=== PATIENT | female | born 1940 | race Caucasian/White ===

== ENCOUNTER → 2018-03-28 | Outpatient (CLI) | payer MEDICARE, BC ==
[~2018-03-28] MED LIST: AMBIEN10 MG PO; AMIODARONE HCL200 MG PO; ASPIR 8181 MG PO; BENTYL10 MG PO; CARVEDILOL3.125 MG PO; CENTRUM SILVER1 EAC3 PO; CEPHALEXIN500 MG PO; COUMADIN3 MG PO; FISH OIL 1,0001 EAC1 PO; FLOMAX0.4 MG PO; K DUR10 MEQ PO; LIVALO4 MG PO; MAGNESIUM250 MG PO; MUCINEX DM ER1 EAC1; NEXIUM40 MG PO; PAXIL20 MG PO; TORSEMIDE10 MG PO; TRAMADOL-ACETAMI1 EA PO; VESICARE10 MG PO; VITAMIN D1000 UNI1 PO; WARFARIN SODIUM4 MG PO; ZANAFLEX4 MG PO
--- NOTE | 2018-03-28 14:17 | Diagnostic Imaging Report ---
Exam: Right shoulder 2 views History: Shoulder pain Comparison: None. Findings: No fracture or malalignment. Downsloping acromion with spurring. Glenohumeral joint intact. Impression: Radiographic finding of rotator cuff tendinopathy. No acute osseous abnormality. Signed by: Dr. Patricio Kim M.D. on 03/28/2018 2:13 PM
--- NOTE | 2018-03-28 14:20 | Diagnostic Imaging Report ---
Exam: Cervical spine AP lateral oblique History: Neck pain Comparison: None. Findings: No acute fracture. Multilevel degenerative disc disease with posterior disc osteophyte complex. Retrolisthesis C3 on C4 and C4 on C5. Multilevel facet and uncovertebral hypertrophy. Multilevel bilateral foraminal stenosis. Impression: No acute osseous abnormality Severe multilevel cervical spondylosis with foraminal stenosis. Signed by: Dr. Patricio Kim M.D. on 03/28/2018 2:16 PM
== END ==
LOC: RAD 13:15
PROVIDERS: ATTEND Family Medicine
DX: M25.511 Pain in right shoulder (principal); M54.12 Radiculopathy, cervical region
CPT/HCPCS: 72050

== ENCOUNTER → 2018-04-06 | Outpatient (CLI) | payer MEDICARE, BC ==
--- NOTE | 2018-04-07 12:14 | Diagnostic Imaging Report ---
EXAMINATION: MRI of the cervical spine without contrast HISTORY: Neck pain radiating to the right shoulder/upper extremity, radiculopathy. COMPARISON: none. TECHNIQUE: Sagittal T1, T2, STIR; axial T2, gradient echo. FINDINGS: Curvature: Mild increase cervical lordosis. Mild S-shaped scoliosis. Grade 1 anterolisthesis at C7-T1. Vertebrae: No evidence of neoplasm, infection, or fracture. Chronic endplate degenerative changes from C3 to C7. Foramen magnum: No mass, Chiari malformation, or basilar invagination. Spinal Cord: Normal size and signal intensity. Soft Tissues: Unremarkable. Degenerative changes: C1-C2: Unremarkable. C2-C3: Mild symmetric disc bulge. Severe facet arthropathy on the right side. No stenoses. C3-C4: Disc osteophyte complex formation, bilateral uncovertebral and facet arthroses. Moderate left foraminal stenoses. C4-C5: Disc osteophyte complex formation, bilateral uncovertebral and facet arthrosis. Mild bilateral foraminal narrowing. C5-C6: Disc osteophyte complex formation, bilateral uncovertebral hypertrophy. Moderate left foraminal stenoses. Mild right foraminal stenosis. C6-C7: Disc osteophyte complex formation, bilateral uncovertebral and facet arthrosis. Moderate left foraminal stenosis. C7-T1: Bilateral facet arthrosis without stenosis. IMPRESSION: 1. Unchanged grade 1 degenerative spondylolisthesis at C7-T1. 2. Moderate degenerative foraminal stenoses on the left at C3-C4, C5-C6 and C6-7. 3. Multilevel spondylosis otherwise without significant spinal canal stenosis. Signed by: Dr. Gianna Islas M.D. on 04/07/2018 12:10 PM
== END ==
LOC: MRI 12:57
PROVIDERS: ATTEND Family Medicine
DX: M54.12 Radiculopathy, cervical region (principal)
CPT/HCPCS: 72141

== ENCOUNTER → 2019-04-10 | Outpatient (CLI) | payer MEDICARE, BC ==
--- NOTE | 2019-04-12 08:51 | Diagnostic Imaging Report ---
EXAMINATION: MRI of the lumbar spine without contrast HISTORY: Low back pain radiating to the left flank COMPARISON: None. TECHNIQUE: Sagittal T1, T2, STIR; axial T2 and proton density. FINDINGS: It is assumed that there are 5 lumbar vertebrae. Curvature/Alignment: S-shaped scoliosis with dominant posterior scoliosis centered at L1-L2 and levoscoliosis at L4-L5. Minimal retrolisthesis at L1-L2 and L2-L3. Vertebrae: No evidence of recent fracture, infection, or neoplasm. Chronic endplate degenerative changes from L1 to S1. Minimal chronic anterior wedging of the T11 and T12 vertebral bodies with mild thoracal lumbar kyphosis. Conus: Normal, terminating at L2 Cauda equina: Unremarkable. Lower thoracic: Unremarkable. Paraspinal soft tissues: Severe paraspinal musculature atrophy from L2 to the sacrum. Degenerative changes: Decreased disc height and T2 signal intensity, symmetric and asymmetric disc bulges as well as marginal lateral endplate osteophytes at all levels. L1-L2: Spondylosis, ligamenta flava thickening and facet arthrosis. Mild canal narrowing. Moderate left foraminal stenoses. L2-L3: Spondylosis, ligamenta flava thickening and facet processes. Mild right and moderate left foraminal stenosis. L3-L4:Spondylosis, ligamenta flava thickening and advanced facet arthrosis. Severe spinal canal and [id number] bilateral foraminal stenoses. L4-L5: Spondylosis, ligamenta flava thickening and facet arthrosis. Mild canal stenoses. Moderate right foraminal stenoses and effacement of the right lateral recess. L5-S1: Spondylosis and facet arthrosis. Moderately severe bilateral foraminal stenoses. Sacroiliac joints: Mild degenerative changes IMPRESSION: 1. S-shaped scoliosis, thoracolumbar kyphosis, grade 1 retrolisthesis at L1-L2 and L2-L3. 2. Severe spinal canal and moderate degenerative foraminal stenosis at L3-L4. 3. Moderate foraminal stenoses on the left at L1-L2 and L2-L3, bilaterally at L3-L4 and on the right at L4-L5 related to degenerative changes and scoliosis. 4. Moderately severe degenerative bilateral foraminal stenosis at L5-S1. Signed by: Dr. Gianna Islas M.D. on 04/12/2019 8:47 AM
== END ==
LOC: MRI 14:23
PROVIDERS: ATTEND Family Medicine
DX: M54.16 Radiculopathy, lumbar region (principal)
CPT/HCPCS: 72148

== ENCOUNTER → 2019-06-01 | Outpatient (CLI) | payer MEDICARE, BC ==
--- NOTE | 2019-06-01 14:17 | Diagnostic Imaging Report ---
EXAM: Renal Ultrasound INDICATION: ^[id number] ^[id number] ^RENAL CYST COMPARISON: None TECHNIQUE: Transverse and longitudinal images of the kidneys and bladder were obtained. FINDINGS: Right Kidney: Length: 9.4 cm Appearance: Normal echogenicity. Collecting system: No hydronephrosis Stones: None Cyst/Mass: None Left Kidney: Not visualized. 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 Bladder: No mass or calculi. Bilateral ureteral jets visualized. Prevoid volume estimate of 208 cc. IMPRESSION: No hydronephrosis or renal calculi on the right. Left kidney not visualized secondary to large cyst associated with the spleen measuring up to 8 cm. Signed by: Luann Paredes MD on 06/01/2019 2:13 PM
== END ==
LOC: US 12:43
PROVIDERS: ATTEND Urology
DX: N28.1 Cyst of kidney, acquired (principal)
CPT/HCPCS: 76770

== ENCOUNTER 2022-05-26 11:27 | Emergency (ER) | payer MEDICARE, BC ==
[~2022-05-26] VITALS: Ht 172.7 cm; Wt 76.7 kg
[2022-05-26] MEDS ORDERED: MUPIROCIN22 GM TOP (12:21)
[2022-05-26] MEDS ORDERED: CEPHALEXIN500 MG PO (12:21)
== END 2022-05-26 12:30 | disposition home or self-care (01) ==
LOC: ER 12:01
DX: S50.912A Unspecified superficial injury of left forearm, initial encounter (principal)
CPT/HCPCS: 99282

== ENCOUNTER → 2022-08-10 | Outpatient (CLI) | payer MEDICARE, BC ==
[~2022-08-10] MED LIST changes: +MUPIROCIN22 GM TOP
== END ==
LOC: CT 11:42
PROVIDERS: ATTEND Nurse Practitioner Adult Health
DX: R42 Dizziness and giddiness (principal)
CPT/HCPCS: 70450